=== PATIENT | male | born 1940 | race Caucasian/White ===

== ENCOUNTER 2017-08-25 14:53 | Emergency (ER) | payer MEDICARE, BC | END 2017-08-25 17:59 | disposition home or self-care (01) | LOC: D.ER 14:53 | DX: T17.228A Food in pharynx causing other injury, initial encounter (principal); X58.XXXA Exposure to other specified factors, initial encounter; Y93.89 Activity, other specified; Y92.019 Unspecified place in single-family (private) house as the place of occurrence of the external cause ==